=== PATIENT | female | born 1965 | race Caucasian/White ===

== ENCOUNTER 2018-01-26 17:48 | Inpatient (IN) ==
--- NOTE | 2018-01-26 18:06 | Emergency Department Note ---
Disposition Clinical Impression: Cellulitis and abscess of leg, Elevated d-dimer Disposition: Admitted As Inpatient Condition: Fair Referrals: Marissa De La Rosa, MANAGER POLICY [Primary Care Provider] - Skin/Abscess/FB HPI Chief complaint: ED Extremity Problem,Nontraumatic Stated complaint: Cellulitis of RLE with swelling Time Seen by Provider: 01/26/18 18:00 Source: patient Mode of arrival: private vehicle Limitations: other Nursing Notes Reviewed: Yes Vital Signs Reviewed: Yes HPI Narrative: Patient relates that she started on Friday with some redness of her right lower extremity. She was seen by [facility] urgent care on Friday , diagnosed as cellulitis and started on Keflex and doxycycline. She has had increased swelling since that time but will decrease in redness. She denies fevers, chills, chest pain or shortness of breath. Denies nausea or vomiting. She states she has pain with standing and ambulation. She denies any injury or immobilization to the leg. She denies any pain or trouble like this before. She denies history of DVT or PE. She is diabetic and states her blood sugars have been running less then 160. Pt Subjective Complaint: discoloration Onset (ago): day(s) (3) Tetanus Up to Date: yes Location: RLE Severity: mild, moderate Quality: aching, dull Consistency: Improving Improves with: none Worsens with: other (Ambulation) Home Medications Medication Instructions Recorded Confirmed TraMADol [Ultram] 50 mg PO TID 08/16/15 01/26/18 Cephalexin [Keflex] 500 mg PO Q6H 01/26/18 01/26/18 Doxycycline 100 mg PO BID 01/26/18 01/26/18 Metformin HCl [Glucophage] 1,000 mg PO BID 01/26/18 01/26/18 Previous Rx's Medication Instructions Recorded Albuterol Sulfate [Ventolin Hfa] 2 gm IH Q4HWA PRN #1 hfa.aer.ad 09/19/16 Gabapentin [Neurontin] 300 mg PO HS #30 capsule 09/19/16 Lisinopril/Hydrochlorothiazide 1 each PO DAILY #30 tablet 09/19/16 [Zestoretic 10-12.5 mg Tablet] Methocarbamol [Robaxin-750] 750 mg PO Q6HR PRN #30 tablet 12/22/16 Metoprolol [Lopressor] 50 mg PO DAILY #30 tablet 09/19/16 Sertraline [Zoloft] 100 mg PO DAILY #30 tablet 09/19/16 TraZODone 50 mg PO HS PRN #30 tablet 09/19/16 glipiZIDE [Glucotrol] 10 mg PO BIDWM 120 Days tablet 09/19/16 risperiDONE [RisperDAL] 2 mg PO HS #30 tablet 09/19/16 Allergies Allergy/AdvReac Type Severity Reaction Status Date / Time No Known Allergies Allergy Verified 08/16/15 09:04 All systems ED: reviewed and negative except as stated. Past Medical History - Past Medical History Attestation: Yes The following information was validated with the patient. Source: patient, nursing notes reviewed Medical history: Reports: diabetes, hypertension, other Surgical history: Reports: no surgical history Psychiatric history: Reports: anxiety, depression COOKING INSTRUCTOR history: Reports: no COOKING INSTRUCTOR history - Social History Smoking Status: Current every day smoker Smokeless Tobacco Status: No Alcohol use: Reports: none Drug use: Reports: none Physical Exam - General Limitations: no limitations General appearance: alert, in no apparent distress - Head Head exam: atraumatic, normocephalic, normal inspection - Eye Eye exam: Present: normal appearance, PERRL, EOMI. Absent: conjunctival injection - ENT ENT exam: normal exam, normal oropharynx, mucous membranes moist - Neck Neck exam: Present: normal inspection, full ROM, trachea midline. Absent: lymphadenopathy - Chest Chest inspection: Present: normal inspection, symmetric chest wall rise - Respiratory Respiratory exam: Present: normal lung sounds bilaterally. Absent: respiratory distress, wheezes, prolonged expiratory phase - Cardiovascular Cardiovascular exam: Present: regular rate, normal rhythm, normal heart sounds. Absent: tachycardia - Abdominal Exam Abdominal exam: Present: soft, Non-Tender, normal bowel sounds. Absent: tenderness, distention, guarding, rebound, rigidity - Extremities Exam Extremities exam: Present: full ROM, tenderness (Diffuse in the right calf.), normal capillary refill, pedal edema (Right foot) - Expanded Lower Extremity Exam Lower leg exam: Present: tenderness, swelling, erythema, Homans' sign. Absent: deformity, crepitus, palpable cord Neurovascular/Tendon exam: Present: normal capillary refill. Absent: motor deficit, sensory deficit, tendon deficit Gait: antalgic - Back Exam Back exam: Present: normal inspection, full ROM. Absent: tenderness, CVA tenderness (R), CVA tenderness (L) - Neurological Exam Neurological exam: Present: alert, oriented X3 - Psychiatric Psychiatric exam: Present: normal affect, normal mood - Skin Skin exam: Present: warm, dry, intact, normal color Course Course Narrative: 1851: Care is discussed with Dr. Long. Verbal orders have been obtained for the patient's observation. Vital Signs Temperature 99.3 F 01/26/18 17:50 Pulse Rate 95 01/26/18 17:50 Respiratory Rate 18 01/26/18 17:50 Blood Pressure 140/94 01/26/18 17:50 O2 Sat by Pulse Oximetry 92 01/26/18 17:50 Temperature 99.3 F 01/26/18 17:50 Pulse Rate 95 01/26/18 17:50 Respiratory Rate 18 01/26/18 17:50 Blood Pressure 140/94 01/26/18 17:50 O2 Sat by Pulse Oximetry 92 01/26/18 17:50 Oxygen Delivery Oxygen Delivery Room Air Skin/Abscess/Foreign Body - Differential Diagnosis Likely: cellulitis (DVT) - Lab Data Lab results reviewed: Yes I reviewed the patient's lab results. Result diagrams: 01/26/18 18:20 01/26/18 18:20 Lab Results 01/26/18 01/26/18 01/26/18 Range/Units 18:20 18:20 18:20 WBC 12.5 H (4.3-11.1) K/mcL RBC 4.60 (3.82-4.97) M/mcL Hgb 13.2 (11.5-15.4) g/dL Hct 38.4 (35.3-44.9) % MCV 83.5 (83.0-100.0) fL MCH 28.7 (28.0-33.3) pg MCHC 34.4 (31.6-35.5) g/dL RDW 13.9 (11.5-14.5) % Plt Count 231 (140-400) K/mcL MPV 9.3 L (9.4-12.4) fL Immature Gran % 0.6 (0-4) % Seg Neutrophils % 78.2 % Lymphocytes % 15.5 % Monocytes % 4.9 % Eosinophils % 0.6 % Basophils % 0.2 % Neutrophils # 9.8 H (1.6-8.9) K/mcL Lymphocytes # 1.9 (0.6-4.6) K/mcL Monocytes # 0.6 (0.0-1.3) K/mcL Eosinophils # 0.1 (0.0-0.6) K/mcL Basophils # 0.0 (0.0-0.2) K/mcL D-Dimer 839 H (0-500) ng/mLFEU Sodium 133 L (136-145) mEq/L Potassium 3.7 (3.5-5.1) mEq/L Chloride 96 L (98-107) mEq/L Carbon Dioxide 28 (23-29) mEq/L BUN 25 H (6-20) mg/dL Creatinine 1.40 H (0.60-1.20) mg/dL Est GFR ( Amer) 48 L (> 60) Est GFR (Non-Af Amer) 40 L (> 60) BUN/Creatinine Ratio 18 (6-26) Glucose 112 H (70-105) mg/dL Calculated Osmolality 281 (280-300) Calcium 9.0 (8.6-10.3) mg/dL
[2018-01-26 18:26] LABS: Basophils % 0.2 %; Eosinophils # 0.1 K/mcL (0.0-0.6); Eosinophils % 0.6 %; Hematocrit 38.4 % (35.3-44.9); Hemoglobin 13.2 g/dL (11.5-15.4); Immature Granulocytes % 0.6 % (0-4); Lymphocytes # 1.9 K/mcL (0.6-4.6); Lymphocytes % 15.5 %; Mean Corpuscular HGB Conc 34.4 g/dL (31.6-35.5); Mean Corpuscular Hemoglobin 28.7 pg (28.0-33.3); Mean Corpuscular Volume 83.5 fL (83.0-100.0); Mean Platelet Volume 9.3 fL (9.4-12.4); Monocytes # 0.6 K/mcL (0.0-1.3); Monocytes % 4.9 %; Neutrophils # 9.8 K/mcL (1.6-8.9); Platelet Count 231 K/mcL (140-400); Red Cell Distribution Width 13.9 % (11.5-14.5); Segmented Neutrophils % 78.2 %
[2018-01-26 18:43] LABS: Potassium 3.7 mEq/L (3.5-5.1)
[2018-01-26] MEDS ORDERED: *HR* Enoxaparin 40 MG/0.4 ML SYRINGE SQ STA (18:50)
[2018-01-26] MEDS ORDERED: D5% in Water 1,000 ML IVC PRN (20:12)
[2018-01-26] MEDS ORDERED: Dextrose Gel 15 GM/37.5 ML TUBE PO PRN ×2 (20:12)
[2018-01-26] MEDS ORDERED: *HR* Dextrose 50 % in Water (Syg) 50 ML SYRINGE IVP PRN (20:12)
[2018-01-26] MEDS ORDERED: Naloxone 0.4 MG/ML INJ IVP PRN (20:12)
[2018-01-26] MEDS ORDERED: risperiDONE 0.25 MG TABLET PO SCH (21:00)
[2018-01-26] MEDS: 0.9 % Sodium Chloride 1,000 ML IVC SCH (22:46)
[2018-01-26] MEDS: traMADol 50 MG TABLET PO SCH (22:59)
[2018-01-26] MEDS: Doxycycline 100 MG CAPSULE PO SCH (23:00)
[2018-01-26] MEDS: cephALEXin 500 MG CAPSULE PO SCH (23:01)
[2018-01-26] MEDS: Gabapentin 300 MG CAPSULE PO SCH (23:02)
[2018-01-26] MEDS: traZODone 50 MG TABLET PO PRN (23:03)
[2018-01-26] MEDS: *HR* Metformin 500 MG TABLET PO SCH (23:10)
[2018-01-27] MEDS: cephALEXin 500 MG CAPSULE PO SCH (04:51)
[2018-01-27] MEDS ORDERED: *HR* Enoxaparin 40 MG/0.4 ML SYRINGE SQ SCH (07:00)
[2018-01-27] MEDS: Insulin LISPRO 300 UNITS/3 ML VIAL SQ SCH ×3 (08:33→16:14)
[2018-01-27] MEDS: Doxycycline 100 MG CAPSULE PO SCH (08:38)
[2018-01-27] MEDS: *HR* Metformin 500 MG TABLET PO SCH ×2 (08:38→18:27)
[2018-01-27] MEDS: *HR* Enoxaparin 150 MG/ML SYRINGE SQ SCH (08:39)
[2018-01-27] MEDS: *HR* GlipiZIDE 5 MG TABLET PO SCH ×2 (08:39→18:27)
[2018-01-27] MEDS: traMADol 50 MG TABLET PO SCH ×3 (08:39→20:51)
--- NOTE | 2018-01-27 11:23 | Internal Med History&Physical ---
Date of Encounter: 01/27/18 Time of Encounter: 10:55 Assessment and Plan (1) Cellulitis and abscess of leg Current visit: Yes Status: Acute She has been started on IV vancomycin with oral Keflex and doxycycline. Will change Keflex to IV Ancef and discontinue doxycycline. Will add lactobacillus. (2) Elevated d-dimer Current visit: Yes Status: Acute Venous ultrasound has been ordered. (3) Azotemia Current visit: Yes Status: Acute Will hold lisinopril/HCTZ, give IV fluids, and monitor renal indices. Internal Medicine - H&P: HPI Chief complaint: Right leg redness and pain Admitted From: Emergency Dept Plans for Post Hospital Care: Home History of present illness: Ms. Hoyt is a 52 year old female who came to emergency room stating she had onset of right leg redness and pain several days earlier. She had been seen January 24 at a local urgent care and received prescription for Keflex and doxycycline for cellulitis. Despite use of the antibiotics the redness and pain progressed so she came to emergency room. It was felt she had cellulitis and also was found to have elevated d-dimer. She was admitted [facility] floor for IV antibiotics and venous ultrasound. She denies previous DVT or pulmonary embolus. Her cardiovascular history is significant for hypertension. She denies [place] heart failure or angina. Past Med Surg Social Fam HX - Past Medical History Medical history: diabetes, hypertension, other Psychiatric history: anxiety, depression - Past Surgical History Surgical History: no surgical history - Social History Smoking Status: Current every day smoker Smokeless Tobacco Status: No Alcohol use: none Drug use: none - Family History Mother Hx Family Cancer: Yes (breast cancer) Father Hx Family Cardiac Disorders: Yes (CHF) Internal Medicine - H&P: Meds TraMADol [Ultram] 50 mg PO TID 08/16/15 [History] Albuterol Sulfate [Ventolin Hfa] 2 gm IH Q4HWA PRN #1 hfa.aer.ad 09/19/16 [Rx] Gabapentin [Neurontin] 300 mg PO HS #30 capsule 09/19/16 [Rx] Lisinopril/Hydrochlorothiazide [Zestoretic 10-12.5 mg Tablet] 1 each PO DAILY # 30 tablet 09/19/16 [Rx] Methocarbamol [Robaxin-750] 750 mg PO Q6HR PRN #30 tablet 09/19/16 [Rx] Metoprolol [Lopressor] 50 mg PO DAILY #30 tablet 09/19/16 [Rx] Sertraline [Zoloft] 100 mg PO DAILY #30 tablet 09/19/16 [Rx] TraZODone 50 mg PO HS PRN #30 tablet 09/19/16 [Rx] glipiZIDE [Glucotrol] 10 mg PO BIDWM 120 Days tablet 09/19/16 [Rx] risperiDONE [RisperDAL] 2 mg PO HS #30 tablet 09/19/16 [Rx] Cephalexin [Keflex] 500 mg PO Q6H 01/26/18 [History] Doxycycline 100 mg PO BID 01/26/18 [History] Metformin HCl [Glucophage] 1,000 mg PO BID 01/26/18 [History] 3 Allergy/AdvReac Type Severity Reaction Status Date / Time No Known Allergies Allergy Verified 08/16/15 09:04 All Systems PM: A 10-system review of systems was performed and is negative for pertinent findings except as documented above in the HPI. Review of systems: Gen.: She states her weight has been stable the past few months Cardiovascular: As per history of present illness Respiratory: She has smoked since age 12 up to 2 packs per day. She denies PFTs and does not use home oxygen. GI: She denies disorders of her liver gallbladder or exocrine pancreas : She denies hematuria dysuria or kidney stones Neurologic: She denies large distribution strokes or seizures. Endocrine: She was diagnosed with DM 2 approximately 1999. She has hyperlipidemia but denies known thyroid disease Hematology/oncology: She denies blood disorders cancers or anemia Psychiatric: She has anxiety and depression and follows at mental health clinic. She denies other psychiatric diagnosis. Musk skeletal: She has DJD but denies gout or other bone joint or muscle disorders. - Constitutional Vitals: Temp Pulse Resp BP Pulse Ox 98.9 F 76 21 81/56 92 01/27/18 10:40 01/27/18 10:40 01/27/18 10:40 01/27/18 10:40 01/27/18 10:40 Exam: Gen.: She is well-developed overweight female lying in bed who appears in no acute distress HEENT: Head is atraumatic and normocephalic. Eyes: She has a slightly disconjugate gaze. There is no scleral icterus. Mouth: Mucosa is moist. Neck: Supple and nontender. There is no thyromegaly or adenopathy noted. Heart: Regular without murmurs gallops or ectopics Lungs: No wheezes or crackles are heard. Abdomen: Soft and nontender. No masses or guarding are noted. Extremities: She has significant erythema extending from the distal right foot up to the lower thigh. There are distinct borders seen at the proximal edge of the erythema. There is tenderness to touch the right leg. The left leg is unremarkable. There is 1-2+ edema of the dorsum of the right foot and none of the left foot. Dorsalis pedis and posterior tibial pulses are not palpable in the right and trace palpable in the left. Neurologic: Mental status: She is talkative and a good historian. Cranial nerves: Smile is symmetric. Forehead wrinkles bilaterally. Tongue protrudes midline. EOMI. Motor: There is no pronator drift. Cerebellar: Finger to nose is intact bilaterally. Skin: Warm and dry Internal Med - H&P Results - Labs CBC & Chem 7: 01/26/18 18:20 01/26/18 18:20
[2018-01-27] MEDS: 0.45 % Sodium Chloride w/KCl 20 MEQ/1,000 ML MLS IVC SCH (12:00)
[2018-01-27] MEDS ORDERED: cephALEXin 500 MG CAPSULE PO SCH (12:00)
[2018-01-27] MEDS: ceFAZolin 1,000 MG in Water for inj. (sterile) 10 ML IVPB SCH (16:08)
[2018-01-27] MEDS: Gabapentin 300 MG CAPSULE PO SCH (20:51)
[2018-01-27] MEDS: risperiDONE 1 MG TABLET PO SCH (20:52)
[2018-01-28] MEDS: ceFAZolin 1,000 MG in Water for inj. (sterile) 10 ML IVPB SCH ×3 (00:40→15:40)
[2018-01-28] MEDS: 0.45 % Sodium Chloride w/KCl 20 MEQ/1,000 ML MLS IVC SCH ×2 (03:47→12:07)
[2018-01-28 06:11] LABS: Basophils % 0.2 %; Eosinophils # 0.1 K/mcL (0.0-0.6); Eosinophils % 1.3 %; Hematocrit 33.2 % (35.3-44.9); Hemoglobin 10.6 g/dL (11.5-15.4); Lymphocytes # 1.7 K/mcL (0.6-4.6); Lymphocytes % 19.8 %; Mean Corpuscular HGB Conc 31.9 g/dL (31.6-35.5); Mean Corpuscular Hemoglobin 27.5 pg (28.0-33.3); Mean Corpuscular Volume 86.2 fL (83.0-100.0); Mean Platelet Volume 9.1 fL (9.4-12.4); Monocytes # 0.5 K/mcL (0.0-1.3); Monocytes % 5.9 %; Neutrophils # 6.2 K/mcL (1.6-8.9); Platelet Count 251 K/mcL (140-400); Red Blood Count 3.85 M/mcL (3.82-4.97); Red Cell Distribution Width 14.3 % (11.5-14.5); Segmented Neutrophils % 71.8 %
[2018-01-28] MEDS: *HR* Enoxaparin 150 MG/ML SYRINGE SQ SCH (06:22)
[2018-01-28 06:43] LABS: BUN/Creatinine Ratio 24 (6-26); Blood Urea Nitrogen 26 mg/dL (6-20); Calcium 8.2 mg/dL (8.6-10.3); Carbon Dioxide 28 mEq/L (23-29); Chloride 104 mEq/L (98-107); Glucose 131 mg/dL (70-105); Magnesium 1.5 mg/dL (1.6-2.6); Osmolality,Calculated 293 (280-300); Potassium 3.7 mEq/L (3.5-5.1); Sodium 138 mEq/L (136-145); eGFR For African Americans > 60 (> 60); eGFR For Non-African Americans 53 (> 60)
[2018-01-28] MEDS: Insulin LISPRO 300 UNITS/3 ML VIAL SQ SCH ×3 (08:39→18:59)
[2018-01-28] MEDS: *HR* GlipiZIDE 5 MG TABLET PO SCH ×2 (08:44→15:40)
[2018-01-28 08:45] LABS: Estimated Average Glucose 192 mg/dl; Hemoglobin A1C 8.3 %
[2018-01-28] MEDS: *HR* Metformin 500 MG TABLET PO SCH ×2 (08:45→15:39)
[2018-01-28] MEDS: traMADol 50 MG TABLET PO SCH ×3 (08:45→21:00)
--- NOTE | 2018-01-28 11:01 | Internal Med Progress Note ---
Date of Encounter: 01/28/18 Time of Encounter: 10:50 - Assessment and plan (1) Cellulitis and abscess of leg Current Visit: Yes Status: Acute Assessment and plan: January 28. Continue IV vancomycin, Ancef, and lactobacillus. (2) Elevated d-dimer Current Visit: Yes Status: Acute Assessment and plan: January 28. Venous Doppler was negative. (3) Azotemia Current Visit: Yes Status: Acute Assessment and plan: January 28. Improved. Continue to hold lisinopril/HCTZ. We will reduce IV fluid rate. (4) Anemia Current Visit: Yes Status: Acute Assessment and plan: Hemoglobin has decreased to 10.6. Suspect due at least in part to dilution. Will check anemia testing in a.m. Qualifiers: Anemia type: unspecified type Qualified Code(s): D64.9 - Anemia, unspecified (5) Hypomagnesemia Current Visit: Yes Status: Acute Assessment and plan: January 28. Magnesium level returned low at 1.5. We will give magnesium oxide. - Subjective Interval history: January 28. She has no new complaints. She reports there is still significant pain in the right lower leg. - Constitutional Vitals: Temp Pulse Resp BP Pulse Ox 99.4 F 80 17 193/78 92 01/28/18 07:42 01/28/18 07:42 01/28/18 07:42 01/28/18 07:42 01/28/18 07:42 Exam: She is sitting in a chair at bedside and appears comfortable. Right leg shows no significant change in the edema. The erythema margins have not expanded proximally on the leg. There is fading of the erythema at the margins but still intense erythema in the right lower leg. There is no swelling or erythema of the left leg. I reviewed her medications and lab results. Venous Doppler was negative for DVT. Internal Medicine: Result - Labs CBC & Chem 7: 01/28/18 05:31 01/28/18 05:31 Labs: Short CBC 01/28/18 Range/Units 05:31 WBC 8.7 (4.3-11.1) K/mcL Hgb 10.6 L D (11.5-15.4) g/dL Hct 33.2 L (35.3-44.9) % Plt Count 251 (140-400) K/mcL Neutrophils # 6.2 (1.6-8.9) K/mcL BMP 01/28/18 05:31 Sodium 138 Potassium 3.7 Chloride 104 Carbon Dioxide 28 BUN 26 H Creatinine 1.09 Glucose 131 H Calcium 8.2 L - ABG Interpretation ABG results: PT/INR, D-dimer D-Dimer 839 ng/mLFEU (0-500) H 01/26/18 18:20 Consult Discharge Plan - Plan
[2018-01-28] MEDS: Magnesium Oxide 400 MG TABLET PO SCH (12:09)
[2018-01-28] MEDS: traZODone 50 MG TABLET PO PRN (21:00)
[2018-01-28] MEDS: risperiDONE 1 MG TABLET PO SCH (21:00)
[2018-01-28] MEDS: Gabapentin 300 MG CAPSULE PO SCH (21:00)
[2018-01-29] MEDS: ceFAZolin 1,000 MG in Water for inj. (sterile) 10 ML IVPB SCH ×4 (00:40→23:06)
[2018-01-29] MEDS: 0.45 % Sodium Chloride w/KCl 20 MEQ/1,000 ML MLS IVC SCH ×2 (01:09→09:21)
[2018-01-29] MEDS: *HR* Enoxaparin 40 MG/0.4 ML SYRINGE SQ SCH (06:31)
[2018-01-29 06:40] LABS: Basophils % 0.2 %; Eosinophils # 0.1 K/mcL (0.0-0.6); Eosinophils % 1.2 %; Hematocrit 32.5 % (35.3-44.9); Hemoglobin 10.6 g/dL (11.5-15.4); Immature Granulocytes % 1.1 % (0-4); Lymphocytes # 1.5 K/mcL (0.6-4.6); Lymphocytes % 17.2 %; Mean Corpuscular HGB Conc 32.6 g/dL (31.6-35.5); Mean Corpuscular Volume 85.8 fL (83.0-100.0); Mean Platelet Volume 8.8 fL (9.4-12.4); Monocytes # 0.6 K/mcL (0.0-1.3); Monocytes % 6.3 %; Neutrophils # 6.5 K/mcL (1.6-8.9); Platelet Count 312 K/mcL (140-400); Red Blood Count 3.79 M/mcL (3.82-4.97); Red Cell Distribution Width 13.8 % (11.5-14.5)
[2018-01-29 06:56] LABS: BUN/Creatinine Ratio 23 (6-26); Blood Urea Nitrogen 18 mg/dL (6-20); Calcium 8.1 mg/dL (8.6-10.3); Carbon Dioxide 25 mEq/L (23-29); Chloride 107 mEq/L (98-107); Glucose 81 mg/dL (70-105); Osmolality,Calculated 285 (280-300); Potassium 4.1 mEq/L (3.5-5.1); Sodium 137 mEq/L (136-145); eGFR For African Americans > 60 (> 60); eGFR For Non-African Americans > 60 (> 60)
[2018-01-29] MEDS: 0.9 % Sodium Chloride 1,000 ML IVC SCH (09:23)
[2018-01-29 09:49] LABS: Folate 11.8 ng/mL (3.0-16.0)
[2018-01-29 10:06] LABS: % Iron Saturation 8 % (15-50); Ferritin 782 ng/ml (10-120); Iron 18 mcg/dL (50-170); Transferrin 154 mg/dL (203-362)
[2018-01-29] MEDS: Insulin LISPRO 300 UNITS/3 ML VIAL SQ SCH ×3 (10:06→18:20)
[2018-01-29] MEDS: traMADol 50 MG TABLET PO SCH ×3 (10:08→21:13)
[2018-01-29] MEDS: Magnesium Oxide 400 MG TABLET PO SCH (10:08)
[2018-01-29] MEDS: *HR* Metformin 500 MG TABLET PO SCH ×2 (10:09→18:10)
[2018-01-29] MEDS: *HR* GlipiZIDE 5 MG TABLET PO SCH ×2 (10:10→18:21)
--- NOTE | 2018-01-29 11:29 | Internal Med Progress Note ---
Date of Encounter: 01/29/18 Time of Encounter: 11:20 - Assessment and plan (1) Cellulitis and abscess of leg Current Visit: Yes Status: Acute Assessment and plan: January 2. Continue IV vancomycin, Ancef, and lactobacillus. (2) Elevated d-dimer Current Visit: Yes Status: Acute Assessment and plan: January 28. Venous Doppler was negative. (3) Azotemia Current Visit: Yes Status: Acute Assessment and plan: January 28. Improved. Continue to hold lisinopril/HCTZ. We will reduce IV fluid rate. January 29. Resolved. Remain off lisinopril/HCTZ. Will discontinue IV fluids. (4) Anemia Current Visit: Yes Status: Acute Assessment and plan: January 28. Hemoglobin has decreased to 10.6. Suspect due at least in part to dilution. Will check anemia testing in a.m. January 29. Hemoglobin stable. Anemia testing showed iron 18, transferrin saturation 8%, transferrin 154, ferritin 782, B12 171, and folate 11.8. Will give B12 injection and start oral B12 supplement. Qualifiers: Anemia type: unspecified type Qualified Code(s): D64.9 - Anemia, unspecified (5) Hypomagnesemia Current Visit: Yes Status: Acute Assessment and plan: January 28. Magnesium level returned low at 1.5. We will give magnesium oxide. - Subjective Interval history: January 28. She has no new complaints. She reports there is still significant pain in the right lower leg. January 29. She has no new complaints and states her right leg feels slightly better. - Constitutional Vitals: Temp Pulse Resp BP Pulse Ox 97.7 F 81 19 136/89 95 01/29/18 10:17 01/29/18 10:17 01/29/18 10:17 01/29/18 10:17 01/29/18 10:17 Exam: She is sitting in a chair at bedside. The right leg is elevated on a stool with pillow. There is decreased size of the erythema with the proximal margin now below the knee. The intensity of redness in the mid right calf/estevez is unchanged. There are numerous serous fluid filled vesicles now present. The edema is unchanged. I reviewed her medications and lab results. Internal Medicine: Result - Labs CBC & Chem 7: 01/29/18 06:15 01/29/18 06:15 Labs: Short CBC 01/29/18 Range/Units 06:15 WBC 8.8 (4.3-11.1) K/mcL Hgb 10.6 L (11.5-15.4) g/dL Hct 32.5 L (35.3-44.9) % Plt Count 312 (140-400) K/mcL Neutrophils # 6.5 (1.6-8.9) K/mcL BMP 01/29/18 06:15 Sodium 137 Potassium 4.1 Chloride 107 Carbon Dioxide 25 BUN 18 Creatinine 0.79 Glucose 81 Calcium 8.1 L - ABG Interpretation ABG results: PT/INR, D-dimer D-Dimer 839 ng/mLFEU (0-500) H 01/26/18 18:20 Consult Discharge Plan - Plan Referrals: Marissa De La Rosa, REVERSE UNIT OPERATOR [Primary Care Provider] - 1 week
[2018-01-29] MEDS ORDERED: Cyanocobalamin (B-12) 1,000 MCG/ML VIAL IM ONE (11:32)
[2018-01-29] MEDS: Gabapentin 300 MG CAPSULE PO SCH (21:13)
[2018-01-29] MEDS: risperiDONE 1 MG TABLET PO SCH (21:13)
[2018-01-30] MEDS: Methocarbamol 500 MG TABLET PO PRN (03:50)
[2018-01-30] MEDS: *HR* Enoxaparin 40 MG/0.4 ML SYRINGE SQ SCH (05:14)
[2018-01-30 06:18] LABS: Basophils % 0.2 %; Eosinophils # 0.1 K/mcL (0.0-0.6); Eosinophils % 1.3 %; Hematocrit 30.8 % (35.3-44.9); Hemoglobin 10.2 g/dL (11.5-15.4); Immature Granulocytes % 0.6 % (0-4); Lymphocytes # 1.6 K/mcL (0.6-4.6); Lymphocytes % 15.9 %; Mean Corpuscular HGB Conc 33.1 g/dL (31.6-35.5); Mean Corpuscular Hemoglobin 28.4 pg (28.0-33.3); Mean Corpuscular Volume 85.8 fL (83.0-100.0); Mean Platelet Volume 8.8 fL (9.4-12.4); Monocytes # 0.6 K/mcL (0.0-1.3); Monocytes % 5.8 %; Neutrophils # 7.6 K/mcL (1.6-8.9); Platelet Count 337 K/mcL (140-400); Red Blood Count 3.59 M/mcL (3.82-4.97); Red Cell Distribution Width 13.8 % (11.5-14.5); Segmented Neutrophils % 76.2 %
[2018-01-30] MEDS: Insulin LISPRO 300 UNITS/3 ML VIAL SQ SCH ×3 (09:23→16:39)
[2018-01-30] MEDS: ceFAZolin 1,000 MG in Water for inj. (sterile) 10 ML IVPB SCH ×2 (09:24→16:59)
[2018-01-30] MEDS: Magnesium Oxide 400 MG TABLET PO SCH (09:25)
[2018-01-30] MEDS: Multivit/Ca/Min/Fe/FA 1 TAB TABLET PO SCH (09:25)
[2018-01-30] MEDS: *HR* Metformin 500 MG TABLET PO SCH ×2 (09:25→16:55)
[2018-01-30] MEDS: *HR* GlipiZIDE 5 MG TABLET PO SCH ×2 (09:25→16:56)
[2018-01-30] MEDS: traMADol 50 MG TABLET PO SCH ×3 (09:26→20:39)
--- NOTE | 2018-01-30 10:49 | Internal Med Progress Note ---
Date of Encounter: 01/30/18 Time of Encounter: 10:42 - Assessment and plan (1) Cellulitis and abscess of leg Current Visit: Yes Status: Acute Assessment and plan: January 2. Continue IV vancomycin, Ancef, and lactobacillus. January 30. Continue present management. Will add iodoform wraps. She will need PT and OT evaluation. (2) Elevated d-dimer Current Visit: Yes Status: Acute Assessment and plan: January 28. Venous Doppler was negative. (3) Azotemia Current Visit: Yes Status: Acute Assessment and plan: January 28. Improved. Continue to hold lisinopril/HCTZ. We will reduce IV fluid rate. January 29. Resolved. Remain off lisinopril/HCTZ. Will discontinue IV fluids. (4) Anemia Current Visit: Yes Status: Acute Assessment and plan: January 28. Hemoglobin has decreased to 10.6. Suspect due at least in part to dilution. Will check anemia testing in a.m. January 29. Hemoglobin stable. Anemia testing showed iron 18, transferrin saturation 8%, transferrin 154, ferritin 782, B12 171, and folate 11.8. Will give B12 injection and start oral B12 supplement. Qualifiers: Anemia type: unspecified type Qualified Code(s): D64.9 - Anemia, unspecified (5) Hypomagnesemia Current Visit: Yes Status: Acute Assessment and plan: January 28. Magnesium level returned low at 1.5. We will give magnesium oxide. (6) Vitamin D deficiency Current Visit: Yes Status: Acute Assessment and plan: January 30. Vitamin D level returned low at 11. Will start vitamin D supplementation. - Subjective Interval history: January 28. She has no new complaints. She reports there is still significant pain in the right lower leg. January 29. She has no new complaints and states her right leg feels slightly better. January 30. She has no new complaints. - Constitutional Vitals: Temp Pulse Resp BP Pulse Ox 98.3 F 79 19 108/73 96 01/30/18 07:22 01/30/18 07:22 01/30/18 07:22 01/30/18 07:22 01/30/18 07:22 Exam: She is lying in bed and appears in no acute distress. Her affect is bright and cheerful. The erythema margins continue to decrease on the superior borders. She has denuded vesicle on the lateral calf area. Internal Medicine: Result - Labs CBC & Chem 7: 01/30/18 05:35 01/29/18 06:15 Labs: Short CBC 01/30/18 Range/Units 05:35 WBC 10.0 (4.3-11.1) K/mcL Hgb 10.2 L (11.5-15.4) g/dL Hct 30.8 L (35.3-44.9) % Plt Count 337 (140-400) K/mcL Neutrophils # 7.6 (1.6-8.9) K/mcL - ABG Interpretation ABG results: PT/INR, D-dimer D-Dimer 839 ng/mLFEU (0-500) H 01/26/18 18:20 Consult Discharge Plan - Plan Referrals: Marissa De La Rosa, MARKETING REGIONAL CONSULTANT [Primary Care Provider] - 1 week
[2018-01-30] MEDS: Cholecalciferol (D-3) 1,000 UNIT TABLET PO SCH (11:47)
[2018-01-30] MEDS: Gabapentin 300 MG CAPSULE PO SCH (20:39)
[2018-01-30] MEDS: risperiDONE 1 MG TABLET PO SCH (20:39)
[2018-01-31] MEDS: ceFAZolin 1,000 MG in Water for inj. (sterile) 10 ML IVPB SCH ×3 (00:20→16:27)
[2018-01-31] MEDS: *HR* Enoxaparin 40 MG/0.4 ML SYRINGE SQ SCH (06:27)
[2018-01-31] MEDS: Magnesium Oxide 400 MG TABLET PO SCH (09:02)
[2018-01-31] MEDS: Insulin LISPRO 300 UNITS/3 ML VIAL SQ SCH ×3 (09:17→16:53)
[2018-01-31] MEDS: *HR* GlipiZIDE 5 MG TABLET PO SCH ×2 (09:18→17:02)
[2018-01-31] MEDS: *HR* Metformin 500 MG TABLET PO SCH ×2 (09:18→17:01)
[2018-01-31] MEDS: traMADol 50 MG TABLET PO SCH ×3 (09:19→21:00)
[2018-01-31] MEDS: Multivit/Ca/Min/Fe/FA 1 TAB TABLET PO SCH (09:19)
[2018-01-31] MEDS: Cyanocobalamin (B-12) 1,000 MCG TABLET PO SCH (09:20)
[2018-01-31] MEDS: Cholecalciferol (D-3) 1,000 UNIT TABLET PO SCH (09:21)
--- NOTE | 2018-01-31 10:13 | Internal Med Progress Note ---
Date of Encounter: 01/31/18 Time of Encounter: 10:05 - Assessment and plan (1) Cellulitis and abscess of leg Current Visit: Yes Status: Acute Assessment and plan: January 2. Continue IV vancomycin, Ancef, and lactobacillus. January 30. Continue present management. Will add iodoform wraps. She will need PT and OT evaluation. (2) Elevated d-dimer Current Visit: Yes Status: Acute Assessment and plan: January 28. Venous Doppler was negative. (3) Azotemia Current Visit: Yes Status: Acute Assessment and plan: January 28. Improved. Continue to hold lisinopril/HCTZ. We will reduce IV fluid rate. January 29. Resolved. Remain off lisinopril/HCTZ. Will discontinue IV fluids. (4) Anemia Current Visit: Yes Status: Acute Assessment and plan: January 28. Hemoglobin has decreased to 10.6. Suspect due at least in part to dilution. Will check anemia testing in a.m. January 29. Hemoglobin stable. Anemia testing showed iron 18, transferrin saturation 8%, transferrin 154, ferritin 782, B12 171, and folate 11.8. Will give B12 injection and start oral B12 supplement. January 31. We will recheck labs in a.m. Possible discharge in 1-2 days if stable. Qualifiers: Anemia type: unspecified type Qualified Code(s): D64.9 - Anemia, unspecified (5) Hypomagnesemia Current Visit: Yes Status: Acute Assessment and plan: January 28. Magnesium level returned low at 1.5. We will give magnesium oxide. January 31. Recheck labs in a.m. (6) Vitamin D deficiency Current Visit: Yes Status: Acute Assessment and plan: January 30. Vitamin D level returned low at 11. Will start vitamin D supplementation. - Subjective Interval history: January 28. She has no new complaints. She reports there is still significant pain in the right lower leg. January 29. She has no new complaints and states her right leg feels slightly better. January 30. She has no new complaints. January 5. She has no new complaints. She states there is still pain in the right leg. She does not feel she can ambulate up and down the steps at her apartment if she is discharged home. - Constitutional Vitals: Temp Pulse Resp BP Pulse Ox 97.8 F 84 18 123/81 95 01/31/18 07:46 01/31/18 07:46 01/31/18 07:46 01/31/18 07:46 01/31/18 07:46 Exam: She is resting comfortably in bed. The edema of the right lower leg and foot has slightly lessened. The erythema continues to gradually fade especially in the peripheral margins. Several more bullae have denuded but there is no active drainage seen at present and the bullae are less tense. Internal Medicine: Result - Labs CBC & Chem 7: 01/30/18 05:35 01/29/18 06:15 - ABG Interpretation ABG results: PT/INR, D-dimer D-Dimer 839 ng/mLFEU (0-500) H 01/26/18 18:20 Consult Discharge Plan - Plan Referrals: Marissa De La Rosa, BROADCAST MAINTENANCE TECHNICIAN [Primary Care Provider] - 1 week
[2018-01-31] MEDS: traZODone 50 MG TABLET PO PRN (20:59)
[2018-01-31] MEDS: Gabapentin 300 MG CAPSULE PO SCH (20:59)
[2018-01-31] MEDS: risperiDONE 1 MG TABLET PO SCH (21:00)
[2018-02-01] MEDS: ceFAZolin 1,000 MG in Water for inj. (sterile) 10 ML IVPB SCH ×3 (00:41→17:56)
[2018-02-01 06:13] LABS: Basophils % 0.2 %; Eosinophils # 0.2 K/mcL (0.0-0.6); Eosinophils % 1.5 %; Hematocrit 31.2 % (35.3-44.9); Hemoglobin 10.2 g/dL (11.5-15.4); Immature Granulocytes % 0.9 % (0-4); Lymphocytes # 1.6 K/mcL (0.6-4.6); Lymphocytes % 15.9 %; Mean Corpuscular HGB Conc 32.7 g/dL (31.6-35.5); Mean Corpuscular Hemoglobin 28.2 pg (28.0-33.3); Mean Corpuscular Volume 86.2 fL (83.0-100.0); Mean Platelet Volume 8.7 fL (9.4-12.4); Monocytes # 0.6 K/mcL (0.0-1.3); Monocytes % 6.1 %; Neutrophils # 7.6 K/mcL (1.6-8.9); Platelet Count 370 K/mcL (140-400); Red Blood Count 3.62 M/mcL (3.82-4.97); Red Cell Distribution Width 13.6 % (11.5-14.5); Segmented Neutrophils % 75.4 %
[2018-02-01] MEDS: *HR* Enoxaparin 40 MG/0.4 ML SYRINGE SQ SCH (06:17)
[2018-02-01 06:32] LABS: BUN/Creatinine Ratio 19 (6-26); Blood Urea Nitrogen 14 mg/dL (6-20); Calcium 8.4 mg/dL (8.6-10.3); Carbon Dioxide 27 mEq/L (23-29); Chloride 105 mEq/L (98-107); Glucose 147 mg/dL (70-105); Magnesium 1.8 mg/dL (1.6-2.6); Osmolality,Calculated 291 (280-300); Potassium 4.3 mEq/L (3.5-5.1); Sodium 139 mEq/L (136-145); eGFR For African Americans > 60 (> 60); eGFR For Non-African Americans > 60 (> 60)
[2018-02-01] MEDS: *HR* GlipiZIDE 5 MG TABLET PO SCH ×2 (08:49→18:02)
[2018-02-01] MEDS: *HR* Metformin 500 MG TABLET PO SCH ×2 (08:49→17:55)
[2018-02-01] MEDS: Multivit/Ca/Min/Fe/FA 1 TAB TABLET PO SCH (08:49)
[2018-02-01] MEDS: traMADol 50 MG TABLET PO SCH ×3 (08:50→20:21)
[2018-02-01] MEDS: Magnesium Oxide 400 MG TABLET PO SCH (08:50)
[2018-02-01] MEDS: Cholecalciferol (D-3) 1,000 UNIT TABLET PO SCH (08:50)
[2018-02-01] MEDS: Insulin LISPRO 300 UNITS/3 ML VIAL SQ SCH ×3 (08:50→18:02)
[2018-02-01] MEDS: Cyanocobalamin (B-12) 1,000 MCG TABLET PO SCH (08:50)
[2018-02-01] MEDS: Methocarbamol 500 MG TABLET PO PRN ×2 (10:26→20:22)
--- NOTE | 2018-02-01 15:49 | Internal Med Progress Note ---
Date of Encounter: 02/01/18 Time of Encounter: 15:39 - Assessment and plan (1) Cellulitis and abscess of leg Current Visit: Yes Status: Acute Assessment and plan: January 2. Continue IV vancomycin, Ancef, and lactobacillus. January 30. Continue present management. Will add iodoform wraps. She will need PT and OT evaluation. February 01. Continue IV vancomycin, Ancef, and lactobacillus. Anticipate discharge home tomorrow with oral antibiotics. (2) Elevated d-dimer Current Visit: Yes Status: Acute Assessment and plan: January 28. Venous Doppler was negative. (3) Azotemia Current Visit: Yes Status: Acute Assessment and plan: January 28. Improved. Continue to hold lisinopril/HCTZ. We will reduce IV fluid rate. January 29. Resolved. Remain off lisinopril/HCTZ. Will discontinue IV fluids. (4) Anemia Current Visit: Yes Status: Acute Assessment and plan: January 28. Hemoglobin has decreased to 10.6. Suspect due at least in part to dilution. Will check anemia testing in a.m. January 29. Hemoglobin stable. Anemia testing showed iron 18, transferrin saturation 8%, transferrin 154, ferritin 782, B12 171, and folate 11.8. Will give B12 injection and start oral B12 supplement. January 31. We will recheck labs in a.m. Possible discharge in 1-2 days if stable. February 01. Hemoglobin stable at 10.2. Anticipate discharge home tomorrow. Qualifiers: Anemia type: unspecified type Qualified Code(s): D64.9 - Anemia, unspecified (5) Hypomagnesemia Current Visit: Yes Status: Acute Assessment and plan: January 28. Magnesium level returned low at 1.5. We will give magnesium oxide. January 31. Recheck labs in a.m. February 01. Magnesium normalized to 1.8. We will discontinue supplement. (6) Vitamin D deficiency Current Visit: Yes Status: Acute Assessment and plan: January 30. Vitamin D level returned low at 11. Will start vitamin D supplementation. February 01. Continue vitamin D. - Subjective Interval history: January 28. She has no new complaints. She reports there is still significant pain in the right lower leg. January 29. She has no new complaints and states her right leg feels slightly better. January 30. She has no new complaints. January 31. She has no new complaints. She states there is still pain in the right leg. She does not feel she can ambulate up and down the steps at her apartment if she is discharged home. February 01. She has no new complaints. She stated she was still uncertain if she could navigate steps at her home. I told her she was stable for discharge and would need to go to a prison if she did not return home. She reported she did not want to consider a SNF at this time and is willing to be discharged home. She states she will need a walker for ambulation. - Constitutional Vitals: Temp Pulse Resp BP Pulse Ox 98.5 F 62 19 121/75 94 02/01/18 10:00 02/01/18 10:00 02/01/18 10:00 02/01/18 10:02/01/18 10:00 Exam: She is resting comfortably in bed and appears in no acute distress. Her affect is overall bright and cheerful. Erythema and edema show continued very slight improvement. I reviewed her medications and lab results. Internal Medicine: Result - Labs CBC & Chem 7: 02/01/18 05:45 02/01/18 05:45 Labs: Short CBC 02/01/18 Range/Units 05:45 WBC 10.1 (4.3-11.1) K/mcL Hgb 10.2 L (11.5-15.4) g/dL Hct 31.2 L (35.3-44.9) % Plt Count 370 (140-400) K/mcL Neutrophils # 7.6 (1.6-8.9) K/mcL BMP 02/01/18 05:45 Sodium 139 Potassium 4.3 Chloride 105 Carbon Dioxide 27 BUN 14 Creatinine 0.74 Glucose 147 H Calcium 8.4 L - ABG Interpretation ABG results: PT/INR, D-dimer D-Dimer 839 ng/mLFEU (0-500) H 01/26/18 18:20 Consult Discharge Plan - Plan Referrals: Marissa De La Rosa, [employer] [Primary Care Provider] - 1 week
[2018-02-01] MEDS: risperiDONE 1 MG TABLET PO SCH (20:21)
[2018-02-01] MEDS: traZODone 50 MG TABLET PO PRN (20:22)
[2018-02-01] MEDS: Lactobacillus 1 EACH CAP.SPRINK PO SCH (20:22)
[2018-02-01] MEDS: Gabapentin 300 MG CAPSULE PO SCH (20:22)
[2018-02-02] MEDS: ceFAZolin 1,000 MG in Water for inj. (sterile) 10 ML IVPB SCH ×2 (00:14→07:52)
[2018-02-02] MEDS: *HR* Enoxaparin 40 MG/0.4 ML SYRINGE SQ SCH (06:47)
[2018-02-02] MEDS: Insulin LISPRO 300 UNITS/3 ML VIAL SQ SCH ×2 (07:52→12:22)
[2018-02-02] MEDS: *HR* Metformin 500 MG TABLET PO SCH (07:53)
[2018-02-02] MEDS: Multivit/Ca/Min/Fe/FA 1 TAB TABLET PO SCH (07:53)
[2018-02-02] MEDS: traMADol 50 MG TABLET PO SCH (07:53)
[2018-02-02] MEDS: Lactobacillus 1 EACH CAP.SPRINK PO SCH (07:54)
[2018-02-02] MEDS: Cholecalciferol (D-3) 1,000 UNIT TABLET PO SCH (07:54)
[2018-02-02] MEDS: Cyanocobalamin (B-12) 1,000 MCG TABLET PO SCH (07:54)
[2018-02-02] MEDS: *HR* GlipiZIDE 5 MG TABLET PO SCH (07:54)
--- NOTE | 2018-02-02 10:58 | Discharge Summary ---
Orders not resulted at time of discharge: Pending orders 01/30/18 05:35 Zinc AM 0400 Date of Encounter: 02/02/18 Time of Encounter: 10:45 - Discharge Diagnosis (1) Cellulitis and abscess of leg Priority: Primary Status: Acute (2) Elevated d-dimer Priority: Secondary Status: Acute (3) Azotemia Priority: Secondary Status: Resolved (4) Anemia Priority: Secondary Status: Acute Qualifiers: Anemia type: iron deficiency Iron deficiency anemia type: unspecified iron deficiency Qualified Code(s): D50.9 - Iron deficiency anemia, unspecified (5) Hypomagnesemia Priority: Secondary Status: Resolved (6) Vitamin D deficiency Priority: Secondary Status: Acute Hospital course: Ms. Hoyt is a 52 year old female who came to emergency room stating she had onset of right leg redness and pain several days earlier. She had been seen January 24 at a local urgent care and received prescription for Keflex and doxycycline for cellulitis. Despite use of the antibiotics the redness and pain progressed so she came to emergency room. It was felt she had cellulitis and also was found to have elevated d-dimer. She was admitted to [facility] floor for IV antibiotics and venous ultrasound. Initial orders were written by the emergency room physician. I saw her on January 27 and performed the history and physical. She was started on IV vancomycin through emergency room. I added IV Ancef and oral lactobacillus. Venous ultrasound showed no evidence of DVT. She had gradual improvement in the erythema. She developed coalescence of vesicles with a few showing marsupialization with shallow underlying ulcers. The edema lessened so there was no active drainage of the fluid. She will continue with oral antibiotic and probiotic at discharge. Lisinopril/HCTZ was discontinued. Her renal indices normalized with BUN and creatinine decreasing to 18 and 0.79 respectively with estimated GFR greater than 60 on 01/29/2018. She will remain off this at discharge. Anemia testing showed iron 18, transferrin saturation 8%, transferrin 154, ferritin 782, B12 171, and folate 11.8. She was given a B12 injection and started on oral B12 supplement. Magnesium level returned low at 1.5. Magnesium oxide was given and her level normalized by day of discharge. She will not continue this at discharge since the lisinopril/HCTZ was discontinued. Vitamin D level returned low at 11. She was started on vitamin D supplementation. Zinc level is pending at time of discharge. On February 02 she was stable for discharge home. She was ordered a wheeled walker to assist in ambulation. Home health services will be ordered. She will follow with her PCP Marissa De La Rosa CNP within 1 week. - Time Spent with Patient Total time spent providing and/or coordinating discharge services: - Discharge Medications Prescriptions: Cholecalciferol (D-3) [Vitamin D] 2,000 unit PO DAILY #60 tablet Cyanocobalamin (B-12) [Vitamin B12] 1,000 mcg PO DAILY #30 tablet Home Medications: TraMADol [Ultram] 50 mg PO TID 08/16/15 [History] Albuterol Sulfate [Ventolin Hfa] 2 gm IH Q4HWA PRN #1 hfa.aer.ad 09/19/16 [Rx] Gabapentin [Neurontin] 300 mg PO HS #30 capsule 09/19/16 [Rx] Methocarbamol [Robaxin-750] 750 mg PO Q6HR PRN #30 tablet 09/19/16 [Rx] Metoprolol [Lopressor] 50 mg PO DAILY #30 tablet 09/19/16 [Rx] Sertraline [Zoloft] 100 mg PO DAILY #30 tablet 09/19/16 [Rx] TraZODone 50 mg PO HS PRN #30 tablet 09/19/16 [Rx] glipiZIDE [Glucotrol] 10 mg PO BIDWM 120 Days tablet 09/19/16 [Rx] risperiDONE [RisperDAL] 2 mg PO HS #30 tablet 09/19/16 [Rx] Cephalexin [Keflex] 500 mg PO Q6H 01/26/18 [History] Doxycycline 100 mg PO BID 01/26/18 [History] Metformin HCl [Glucophage] 1,000 mg PO BID 01/26/18 [History] Cholecalciferol (D-3) [Vitamin D] 2,000 unit PO DAILY #60 tablet 02/02/18 [Rx] Cyanocobalamin (B-12) [Vitamin B12] 1,000 mcg PO DAILY #30 tablet 02/02/18 [Rx] Multivit/Ca/Min/Fe/FA [Thera M Plus] 1 tab PO DAILY tablet 02/02/18 [Rx] Allergies/Adverse Reactions: 3 Allergy/AdvReac Type Severity Reaction Status Date / Time No Known Allergies Allergy Verified 08/16/15 09:04 Date of admission: 01/28/18 14:07 Primary care physician: Marissa De La Rosa CNP Consults: 01/30/18 10:46 Consult to Occupational Therapy [CONS] Routine Comment: Evaluate, develop and implement POC Reason for Consult: Weakness Does patient have active BEDREST order?: No Is patient medically & hemodynamically stable?: Yes Patient assessed for mobility or mobilized this visit?: Yes Consult to Physical Therapy [CONS] Routine Comment: Evaluate, develop and implement POC Reason for Consult: Weakness Does patient have active BEDREST order?: No Is patient medically & hemodynamically stable?: Yes Patient assessed for mobility or mobilized this visit?: Yes - Constitutional Vitals: Temp Pulse Resp BP Pulse Ox 98.3 F 79 19 126/75 96 02/02/18 06:00 02/02/18 06:00 02/02/18 06:00 02/02/18 06:00 02/02/18 06:00 - Patient Status Disposition: Home Health Service Condition: Fair Functional capacity at discharge: uses cane/walker Overall status at discharge: patient is progressing back to baseline - Discharge Instructions Follow Up With: Marissa De La Rosa CNP [Primary Care Provider] - 1 week Forms: ED Satisfaction Letter - Diet and Activity Activity: as per physical therapy Diet: low fat, low cholesterol
[2018-02-02 11:08] VITALS: BP 108/70
--- NOTE | 2018-02-02 11:09 | Physician Discharge Referral ---
Home Health/Hosp Referral Info Transfer to: Home Health Attending Provider: Ethan Provider in Charge Post Discharge: PCP (Marissa De La Rosa CNP) - Diagnosis (1) Cellulitis and abscess of leg Priority: Primary Status: Acute (2) Elevated d-dimer Priority: Secondary Status: Acute (3) Azotemia Priority: Secondary Status: Resolved (4) Anemia Priority: Secondary Status: Acute (5) Hypomagnesemia Priority: Secondary Status: Resolved (6) Vitamin D deficiency Priority: Secondary Status: Acute - Respiratory Orders Smoking Cessation: Smoking cessation has been advised. For more information, call the [place] Tobacco Quit Line at 9-314-YXII-NOW. - Dressing/Wound Care Site: Monitor right lower leg erythema and bullae. Apply iodoform and gauze dressing as needed. - Activity Activity Orders: Walker - Services Needed Following services are medically necessary services: Nursing, Home Health Aide, Physical Therapy, Occupational Therapy - Transfer Medications Prescriptions: Cholecalciferol (D-3) [Vitamin D] 2,000 unit PO DAILY #60 tablet Cyanocobalamin (B-12) [Vitamin B12] 1,000 mcg PO DAILY #30 tablet Home Medications: TraMADol [Ultram] 50 mg PO TID 08/16/15 [History] Albuterol Sulfate [Ventolin Hfa] 2 gm IH Q4HWA PRN #1 hfa.aer.ad 09/19/16 [Rx] Gabapentin [Neurontin] 300 mg PO HS #30 capsule 09/19/16 [Rx] Methocarbamol [Robaxin-750] 750 mg PO Q6HR PRN #30 tablet 09/19/16 [Rx] Metoprolol [Lopressor] 50 mg PO DAILY #30 tablet 09/19/16 [Rx] Sertraline [Zoloft] 100 mg PO DAILY #30 tablet 09/19/16 [Rx] TraZODone 50 mg PO HS PRN #30 tablet 09/19/16 [Rx] glipiZIDE [Glucotrol] 10 mg PO BIDWM 120 Days tablet 09/19/16 [Rx] risperiDONE [RisperDAL] 2 mg PO HS #30 tablet 09/19/16 [Rx] Cephalexin [Keflex] 500 mg PO Q6H 01/26/18 [History] Doxycycline 100 mg PO BID 01/26/18 [History] Metformin HCl [Glucophage] 1,000 mg PO BID 01/26/18 [History] Cholecalciferol (D-3) [Vitamin D] 2,000 unit PO DAILY #60 tablet 02/02/18 [Rx] Cyanocobalamin (B-12) [Vitamin B12] 1,000 mcg PO DAILY #30 tablet 02/02/18 [Rx] Multivit/Ca/Min/Fe/FA [Thera M Plus] 1 tab PO DAILY tablet 02/02/18 [Rx] Allergies/Adverse Reactions: 3 Allergy/AdvReac Type Severity Reaction Status Date / Time No Known Allergies Allergy Verified 08/16/15 09:04 Certification: Further, I certify that my clinical findings support that this patient is homebound (i.e. absences from home require considerable and taxing effort and are for medical reasons or latter day services or infrequently or short duration when for other reasons) because: Homebound Reason: Leaving home requires considerable and taxing effort due to condition (Significantly impaired walking ability due to cellulitis with right leg edema) Attestation: My signature below is to certify that this patient is under my care and that I, or nurse practitioner, or a physician's assistant professor of mathematics working with me, has a face-to -face encounter with this patient.
[2018-02-02] MEDS ORDERED: Aminoglycoside Consult 1 EACH MC ONE (16:00)
== END 2018-02-02 19:00 | disposition home health service (06) | DRG 383 ==
LOC: EMEROOPIK 17:48 → INPPIK 17:48
PROVIDERS: ADMIT Internal Medicine; ATTEND Internal Medicine